=== PATIENT | male | born 1950 | race Caucasian/White ===

== ENCOUNTER 2016-10-14 21:30 | Emergency (ER) | payer BC ==
[~2016-10-14] VITALS: Ht 180.3 cm; Wt 88.2 kg
[~2016-10-14 21:30] MED LIST: PRLSR20 PO
[2016-10-14 21:41] VITALS: TEMP 36.9; Ht 180.3 cm; Wt 88.2 kg
[2016-10-14] MEDS ORDERED: LIDOCAINE/EPINEPHRINE 1% 20 ML VIAL INFIL STA (21:48)
--- NOTE | 2016-10-14 21:54 | EMERGENCY ROOM VISIT NOTE ---
ED Visit Note First contact with patient: 21:42 Chief Complaint: "Laceration on head". History of Present Illness: This patient is a 66-year-old male who presents to the Emergency Department via private vehicle accompanied by female for evaluation of their scalp laceration. Patient sustained the laceration while operating a crowbar earlier today, approximate 5 hours prior to arrival. They report a moderate amount of bleeding initially. They report no loss of consciousness. They deny any headache, visual disturbance, nausea, vomiting, or new neck pain. Patient rates his current discomfort as a 5/10. Patient's Tetanus status is believed to not be currently up-to-date. Medications: As noted below Allergies: None PMH: No pertinent at this time SHx: Patient lives locally with spouse ROS: All pertinent positive and negative review of systems are appropriately documented in the History of Present Illness. Physical Exam: VITAL SIGNS - Vital signs and nursing notes were reviewed. Afebrile, pressure 149/89, non-tachycardic and is saturating well on room air at 97%. GENERAL -66-year-old male appearing his stated age. Communicates well with provider and answers questions appropriately. SKIN - There is a 3 cm laceration noted to the anterior forehead in a V shape. The edges gape apart with traction. There is minimal active bleeding appreciated. No deep structures including vessels, musculature, or bony structures are appreciated. HEAD - Normocephalic. No Taylor's Sign or Raccoon's Eyes. No depressed skull fractures palpable. EYES - PERRL with EOMI bilaterally. Without subconjunctival hemorrhage. Palpebral conjunctiva pink and moist with no injection. EARS - No deformities of external structures noted on gross examination bilaterally. No hemotympanum present. No tympanic perforation noted. NOSE - Midline and without cyanosis. No epistaxis or clear watery discharge noted. Septum midline without deviation. No septal hematoma noted. No overlying ecchymosis noted. MOUTH/OROPHARYNX - Without perioral cyanosis. Tongue midline with equal elevation of palate bilaterally. No blood noted in the oropharynx. No tonsillar hypertrophy, erythema, or exudates noted. No dental fractures noted. NECK - FROM assessed. No tenderness to palpation over the cervical spinous processes. No cervical paraspinal muscle tenderness noted. NEUROLOGIC - Cranial nerves II through XII grossly intact. Sensory intact to light touch throughout. PSYCH - A&O. Pt is very pleasant and interacts well with examiner. ED Course: Patient was seen and evaluated by myself. Patient had no focal neurological deficits. Patient's exam is otherwise unremarkable. Patient reports no headaches , visual disturbances, nausea, vomiting, or over-lethargy. Because the patient noted that he heard a crack when the bar struck his head, I did recommend a potential CT scan. This was ordered, however after thorough discussion he respectfully declined a CT scan of the head. Risks and benefits of performing primary wound closure versus no repair were discussed with the patient who verbalizes understanding. Verbal consent was obtained prior to performing the procedure. 3 cc of 1% buffered lidocaine with epinephrine was used to anesthetize the 2 cm laceration. The wound was cleansed and prepped in the typical sterile fashion utilizing normal saline and Betadine. The wound was sterilely draped. Once proper anesthetization was established, the wound was further examined and demonstrated no deep involvement. The wound was copiously irrigated with normal saline and Betadine. The wound was closed using 3 simple, 6-0 nylon sutures with the wound edges being well approximated. Patient tolerated the procedure well. No complications were met. The wound was cleansed and dressed with a Bacitracin dressing. Patient received their Adacel vaccination. Patient educated on worrisome symptoms for return visit to the Emergency Department. Patient discharged to home in good condition. He is to follow-up with his family doctor regarding his elevated blood pressure. In the evaluation and treatment of this patient, the following differential diagnoses were considered: Concussion, Contrecoup Injury, Brain Tumor, Depression, Encephalitis, Hypothyroidism, Meningitis, CVA, TIA, Migraine, Cluster Headache, Intracranial Abnormality, Intracranial Hemorrhage, Subdural Hematoma, Subarachnoid Hemorrhage, Hydrocephalus. Current/Historical Medications Scheduled Finasteride (Proscar), 5 MG PO DAILY Omeprazole (Prilosec), 20 MG PO DAILY Tamsulosin Hcl (Flomax), 0.4 MG PO BID Allergies Coded Allergies: No Known Allergies (Verified Allergy, Unknown, 01/29/08) Vital Signs Date Time Temp Pulse Resp B/P (MAP) Pulse Ox O2 Delivery O2 Flow Rate FiO2 10/14/16 22:46 72 18 149/89 97 10/14/16 21:41 36.9 72 18 149/89 97 Room Air Medications Administered Medications (Trade) Dose Ordered Sig/German Route Start Time Stop Time Status Last Admin Dose Admin Lidocaine/ Epinephrine (Xylocaine/Epine 1% Inj) 20 ml ONE STAT INFIL 10/14/16 21:48 10/14/16 21:50 DC 10/14/16 21:56 20 ML Diphtheria/ Pertussis/Tetanus Vacc (Adacel Inj) 0.5 ml ONCE ONCE IM. 10/14/16 22:00 10/14/16 22:01 DC 10/14/16 21:56 0.5 ML Departure Information Impression Primary Impression: Laceration Dispostion Home / Self-Care Condition GOOD Referrals Jarek De Leon M.D. (PCP) Patient Instructions My [facility] Additional Instructions Discharge Instructions: You have received 3 sutures on your head. These sutures are NOT dissolvable and WILL need to be removed by a health care provider in 7 days. You can return to the Emergency Department or contact your Primary Care Provider to have the sutures removed. Proper wound care is essential for adequate wound healing and infection prevention. You can shower and clean the wound with soap and water. Do not scour over the wound, pat dry with a towel. Do not submerse the wound (i.e. bathe or dish wash) until the sutures have been removed. You can use an antibiotic ointment with a dressing over the wound for the next 2-3 days. After this time you may leave the wound dry and open to the air. If crust develops over the wound you can use a Q-tip to apply a 1:1 peroxide:water solution to clean the wound. Look for signs of infection of the wound including: increased pain, swelling, foul discharge, streaking, or increased temperature. If any of these are noticed you should return to the Emergency Department for further assessment and treatment. As with any laceration you may have received nerve damage to the surrounding tissues. This damage may or may not be permanent. You should keep the area covered with sunscreen for the first 6 months to 1 year when at risk for exposure to help minimize scarring. You can also use scar reducing creams or Vitamin E oil to help minimize scarring. For pain control, you can use the following [id number] medicine: - Regular strength (325mg/tab) Tylenol (acetaminophen) 2 tabs every 4-6 hours as needed. Do not exceed 12 tablets in a 24 hour period. Avoid taking more than 3 grams (3000 mg) of Tylenol per day. This includes any other sources of acetaminophen you may take on a regular basis. Return to the emergency department if your symptoms worsen despite treatment course outlined above. Please return to the emergency department with any new/concerning symptoms. Your blood pressure was found to be slightly elevated today, please follow-up with your family doctor regarding this.
[2016-10-14] MEDS ORDERED: DIPHTHERIA/TETANUS/PERTUSSIS 0.5 ML SYR/VIAL IM. ONE (22:00)
[2016-10-14] MEDS ORDERED: TAMS0.4C38 PO (22:08)
[2016-10-14] MEDS ORDERED: FINA5TAB PO (22:08)
[2016-10-14] MEDS ORDERED: PRLSR20 PO (22:08)
[2016-10-14 22:46] VITALS: BP 149/89; PULSE 72; O2SAT 97
== END 2016-10-14 22:47 | disposition home or self-care (01) ==
LOC: C.EDB 21:32 → C.EDD 22:47
DX: S01.91XA Laceration without foreign body of unspecified part of head, initial encounter (principal); W22.8XXA Striking against or struck by other objects, initial encounter; Z23 Encounter for immunization

== ENCOUNTER 2016-10-22 11:23 | Emergency (ER) | payer BC ==
[~2016-10-22 11:23] MED LIST changes: +FINA5TAB PO; +TAMS0.4C38 PO
[2016-10-22 11:26] VITALS: BP 118/76; PULSE 58; TEMP 36.8; O2SAT 97
--- NOTE | 2016-10-22 11:37 | EMERGENCY ROOM VISIT NOTE ---
ED Visit Note First contact with patient: 11:30 CHIEF COMPLAINT: Suture removal scalp laceration HISTORY of present illness: This 66-year-old male patient returns to the ED today for removal of sutures that were placed 7 days ago into his scalp. There has been no swelling, redness, or drainage from the wound. The patient feels like the laceration is healing well. REVIEW OF SYSTEMS: 3 system review was performed and was negative unless stated otherwise in history of present illness. PMH: The patient is healthy; BPH SOCIAL HISTORY: Patient lives with his . PHYSICAL EXAM: Vital Signs: Were reviewed Reviewed Nurse's notes. GEN.: 66-year -old white male appears in no acute distress. MENTAL Status: Alert and oriented 3. HEAD: There is a sutured wound on the frontal region with no signs of infection. There is no erythema, swelling, or tenderness. EMERGENCY DEPARTMENT COURSE: The sutures were removed without any difficulty and there was no separation of the wound edges. DIAGNOSIS: Healing scalp laceration and suture removal DISCHARGE INSTRUCTIONS AND TREATMENT: Wash any remaining crusts off of the wound today and resume your normal activities. Current/Historical Medications Scheduled Finasteride (Proscar), 5 MG PO DAILY Omeprazole (Prilosec), 20 MG PO DAILY Tamsulosin Hcl (Flomax), 0.4 MG PO BID Allergies Coded Allergies: No Known Allergies (Verified , 10/22/16) Vital Signs Date Time Temp Pulse Resp B/P (MAP) Pulse Ox O2 Delivery O2 Flow Rate FiO2 10/22/16 11:26 36.8 58 20 118/76 97 Room Air Departure Information Referrals Jarek De Leon M.D. (PCP) Patient Instructions My [facility]
== END 2016-10-22 11:42 | disposition home or self-care (01) ==
LOC: C.EDB 11:25 → C.EDD 11:42
DX: Z48.02 Encounter for removal of sutures (principal); S01.91XD Laceration without foreign body of unspecified part of head, subsequent encounter; W22.8XXD Striking against or struck by other objects, subsequent encounter

== ENCOUNTER → 2017-05-15 | Outpatient (CLI) | payer OTHER | END | disposition home or self-care (01) | LOC: C.LABSPEC 17:47 | PROVIDERS: ATTEND Nurse Practitioner Adult Health | DX: N50.89 Other specified disorders of the male genital organs (principal) ==